=== PATIENT | female | born 1960 | race Caucasian/White ===

== ENCOUNTER 2016-10-12 16:33 | Inpatient (IN) | payer BC, OTHER ==
[~2016-10-12] VITALS: Ht 154.9 cm; Wt 100.7 kg
[2016-10-12] VITALS (50 sets, daily range): BP systolic 147–154; BP diastolic 75–86; PULSE 110–130; TEMP 96.5–98.4; O2SAT 85–96
[2016-10-12 17:14] LABS: ALLEN TEST YES; ALLENS TEST RESULT PASS; ARTERIAL BLD GAS O2 SATURATION 93.2 % (92-100); ARTERIAL BLOOD GAS BASE EXCESS -0.2 (-2-2); ARTERIAL BLOOD GAS HCO3 23.9 meq/L (22-26); ARTERIAL BLOOD GAS PHT 7.43 C (7.35-7.45); ARTERIAL BLOOD GAS PO2 69.3 mmHg (80-100); ARTERIAL BLOOD GAS PO2T 69.3 (80-100); ARTERIAL BLOOD GAS pH 7.43 (7.35-7.45); ATS? YES; OXYHEMOGLOBIN 92.8 %
[2016-10-12 17:46] LABS: MEAN CELL VOLUME 86 fl (80.0-100.0); MEAN CORPUSCULAR HGB CONC 33 g/dl (33.0-37.0); MEAN PLATELET VOLUME 10.7 fl (7.4-10.4); PLATELET COUNT 289 K/mm3 (130-400); RED BLOOD COUNT 3.64 M/mm3 (4.10-5.30); REDCELL DISTRIBUTION WIDTH-CV 14.6 % (11.5-14.5)
[2016-10-12 17:47] LABS: INR 1.1 (0.8-3.0); PROTHROMBIN TIME 12.5 SECONDS (9.7-12.8)
[2016-10-12 17:49] LABS: HEMATOCRIT 31.2 % (37.0-47.0); HEMOGLOBIN 10.2 g/dl (12.5-16.0); MEAN CORPUSCULAR HEMOGLOBIN 28 pg (27.0-31.0)
[2016-10-12 17:50] LABS: ADD PATHOLOGY DIFF REVIEW NO
[2016-10-12 17:58] LABS: ALBUMIN 3.5 gm/dL (3.5-5.0); BILIRUBIN,TOTAL 0.5 mg/dL (0.0-1.0); CALCIUM 7.6 mg/dL (8.4-10.2); CREATININE, serum 0.63 mg/dL (0.52-1.25); POTASSIUM 3.8 mmol/L (3.4-5.0); TOTAL PROTEIN 6.5 gm/dL (6.4-8.2)
[2016-10-12 18:02] LABS: HEMOGLOBIN A1C 7.9 %
[2016-10-12 18:26] LABS: TROPONIN-I 0.129 ng/mL (0.000-0.034)
[2016-10-12 18:44] LABS: LACTIC ACID 4.4 mmol/L (0.4-2.0)
[2016-10-12 19:51] LABS: ANISOCYTOSIS 1+; BAND 5 % (0-10); EOSINOPHIL 1 % (0-4); MYELOCYTE 3 % (0-0); NEUTROPHILS 62 % (42.0-75.2); PLATELET ESTIMATE NORMAL (NORMAL); TOTAL CELLS COUNTED 100
== END 2016-10-12 20:55 | disposition short-term general hospital (02) | DRG 189 ==
LOC: ICU 16:33
PROVIDERS: Internal Medicine; Internal Medicine Pulmonary Disease
DX: J96.01 Acute respiratory failure with hypoxia (principal); I50.21 Acute systolic (congestive) heart failure; I21.4 Non-ST elevation (NSTEMI) myocardial infarction; I10 Essential (primary) hypertension; F17.210 Nicotine dependence, cigarettes, uncomplicated; J45.909 Unspecified asthma, uncomplicated; E11.9 Type 2 diabetes mellitus without complications; Z79.84 Long term (current) use of oral hypoglycemic drugs
CPT/HCPCS: 99223-AI; A4315; J0692; J1650; J1940; J1956; J2930

== ENCOUNTER → 2016-11-03 | Outpatient (REF) | LOC: ZLAB.WCH 10:48 | DX: Z01.89 Encounter for other specified special examinations (principal) ==

== ENCOUNTER → 2016-11-10 | Outpatient (REF) | LOC: ZLAB.WCH 15:20 | DX: Z01.89 Encounter for other specified special examinations (principal) ==

== ENCOUNTER → 2017-01-22 | Outpatient (REF) | LOC: ZLAB.WCH 19:29 | DX: Z01.89 Encounter for other specified special examinations (principal) ==

== ENCOUNTER → 2017-05-01 | Outpatient (REF) | LOC: ZLAB.WCH 18:00 | DX: Z01.89 Encounter for other specified special examinations (principal) ==

== ENCOUNTER → 2017-06-05 | Outpatient (CLI) | payer OTHER | LOC: BHSO 10:56 | DX: F33.42 Major depressive disorder, recurrent, in full remission (principal) | CPT/HCPCS: 90791-AI ==

== ENCOUNTER → 2017-07-05 | Outpatient (CLI) | payer OTHER | LOC: BHSO 10:03 | DX: F33.41 Major depressive disorder, recurrent, in partial remission (principal) ==

== ENCOUNTER → 2017-07-17 | Outpatient (REF) | LOC: ZLAB.WCH 19:32 | DX: Z01.89 Encounter for other specified special examinations (principal) ==

== ENCOUNTER → 2017-10-15 | Outpatient (CLI) | payer OTHER | LOC: BHSO 09:34 | DX: F33.41 Major depressive disorder, recurrent, in partial remission (principal) | CPT/HCPCS: G0463 ==

== ENCOUNTER → 2017-11-07 | Outpatient (REF) | LOC: ZLAB.WCH 18:11 | DX: Z01.89 Encounter for other specified special examinations (principal) ==

== ENCOUNTER → 2017-12-12 | Outpatient (CLI) | payer OTHER | LOC: BHSO 10:38 | DX: F33.41 Major depressive disorder, recurrent, in partial remission (principal) | CPT/HCPCS: G0463 ==

== ENCOUNTER → 2018-03-06 | Outpatient (CLI) | payer OTHER | LOC: BHSO 09:51 | DX: F33.41 Major depressive disorder, recurrent, in partial remission (principal) | CPT/HCPCS: G0463 ==

== ENCOUNTER → 2018-04-19 | Outpatient (REF) | LOC: ZLAB.WCH 16:01 | DX: Z01.89 Encounter for other specified special examinations (principal) ==

== ENCOUNTER → 2018-05-30 | Outpatient (CLI) | payer OTHER | LOC: BHSO 10:14 | DX: F33.41 Major depressive disorder, recurrent, in partial remission (principal) | CPT/HCPCS: G0463 ==

== ENCOUNTER → 2018-07-18 | Outpatient (CLI) | payer OTHER | LOC: COL.VAS 11:15 | DX: I27.20 Pulmonary hypertension, unspecified (principal); I51.7 Cardiomegaly ==

== ENCOUNTER → 2018-10-15 | Outpatient (CLI) | payer OTHER | LOC: BHSO 09:53 | DX: F33.42 Major depressive disorder, recurrent, in full remission (principal) | CPT/HCPCS: G0463 ==

== ENCOUNTER → 2018-12-19 | Outpatient (CLI) | payer OTHER | LOC: BHSO 16:04 | DX: F33.41 Major depressive disorder, recurrent, in partial remission (principal) | CPT/HCPCS: G0463 ==

== ENCOUNTER → 2019-01-02 | Outpatient (REF) | LOC: ZLAB.WCH 13:50 | DX: Z01.89 Encounter for other specified special examinations (principal) ==

== ENCOUNTER → 2019-01-02 | Outpatient (REF) | LOC: ZLAB.WCH 17:17 | DX: Z01.89 Encounter for other specified special examinations (principal) ==

== ENCOUNTER → 2019-01-05 | Outpatient (REF) | LOC: ZLAB.WCH 15:19 | DX: Z01.89 Encounter for other specified special examinations (principal) ==

== ENCOUNTER → 2019-02-19 | Outpatient (CLI) | payer OTHER | LOC: BHSO 13:55 | DX: F33.41 Major depressive disorder, recurrent, in partial remission (principal) | CPT/HCPCS: G0463 ==

== ENCOUNTER → 2019-03-05 | Outpatient (CLI) | payer OTHER | LOC: COL.VAS 02-28 12:30 | DX: R06.02 Shortness of breath (principal) ==

== ENCOUNTER → 2019-05-22 | Outpatient (CLI) | payer OTHER | LOC: BHSO 14:09 | DX: F33.1 Major depressive disorder, recurrent, moderate (principal) | CPT/HCPCS: G0463 ==

== ENCOUNTER → 2021-09-22 | Outpatient (CLI) | payer OTHER | LOC: COL.RAD 08:15 | DX: M51.34 Other intervertebral disc degeneration, thoracic region (principal); M48.04 Spinal stenosis, thoracic region; M51.25 Other intervertebral disc displacement, thoracolumbar region | CPT/HCPCS: A9585 ==

== ENCOUNTER 2022-03-27 19:52 | Observation (INO) | payer OTHER ==
[~2022-03-27] VITALS: Ht 152.4 cm; Wt 82.9 kg
[2022-03-27 21:32] VITALS: BP 96/46; PULSE 72; TEMP 98.6
[2022-03-27] MEDS ORDERED: GLUCOPHAGE XR500 M1 PO (21:49)
[2022-03-27] MEDS ORDERED: LYRICA300 MG PO (21:50)
[2022-03-27] MEDS ORDERED: COZAAR 25MG25 MG/TAB PO (21:50)
[2022-03-27] MEDS ORDERED: DOXYCYCLINE HY100 MG PO (21:51)
[2022-03-27] MEDS ORDERED: PRIL40 PO (21:51)
[2022-03-27] MEDS ORDERED: CEPHALEXIN500 M1 PO (21:52)
[2022-03-27] MEDS ORDERED: PRISTIQ25 MG PO (21:52)
[2022-03-27] MEDS ORDERED: CALCIUM 600-D 61 TAB PO (21:53)
[2022-03-27] MEDS ORDERED: MOBIC15 MG PO (21:54)
[2022-03-27] MEDS ORDERED: ARICEPT10 MG PO (21:54)
[2022-03-27] MEDS ORDERED: LOFIBRA134 MG PO (21:54)
[2022-03-27] MEDS ORDERED: LASIX 20MG TABL20 MG PO (21:55)
[2022-03-27] MEDS ORDERED: SYNTHROID0.05 MG/TA PO (21:55)
[2022-03-27] MEDS ORDERED: TOPROL XL100 MG PO (21:56)
[2022-03-27] MEDS ORDERED: ZOCOR 40MG40 MG PO (21:56)
[2022-03-27] MEDS ORDERED: TRULICITY1.5 MG/0.5 SQ (21:57)
[2022-03-27] MEDS ORDERED: IPRATROPIUM BROM3 M1 IH (21:57)
[2022-03-27] MEDS ORDERED: REQUIP XL12 MG PO (21:58)
[2022-03-27] MEDS ORDERED: ALDACTONE 25MG25 M1 PO (21:58)
--- NOTE | 2022-03-27 22:54 | NUR ---
Patient arrived to medical unit from [place] via EMS at approximately 2145. Denies having pain and discomfort. On oxygen at 1.5 L/min via NC. Brought home BIPAP. Notified RT. Med rec completed, and updated BRITNEY Saunders. Patient reports SOB has gotten better with oxygen. Denies pain and discomfort. In bed with call light within reach. Voices no questions, needs, or concerns at this time.
[2022-03-28] VITALS (7 sets, daily range): BP systolic 90–131; BP diastolic 46–68; PULSE 6–70; TEMP 97.5–98.6
--- NOTE | 2022-03-28 05:57 | NUR ---
Patient had been on oxygen at 1.5 L/min via NC. During sleep, was on home CPAP with oxygen at 3 L/min bleed in per RT. Denies pain and discomfort. Voices no questions, needs, or concerns at this time. In bed with call light within reach.
[2022-03-28 07:11] LABS: BASO % 0.3 % (0.0-2.0); GRAN # 2.2 K/mm3 (1.4-6.5); GRAN % 72.6 % (42.2-75.2); HEMOGLOBIN 10.4 g/dl (12.5-16.0); LYMPH # 0.6 K/mm3 (1.2-3.4); LYMPH % 18.8 % (20.0-51.0); MEAN CELL VOLUME 88 fl (80.0-100.0); MEAN CORPUSCULAR HEMOGLOBIN 29 pg (27-31); MEAN CORPUSCULAR HGB CONC 33 g/dl (33.0-37.0); MEAN PLATELET VOLUME 11.6 fl (7.4-10.4); MONO # 0.2 K/mm3 (0.1-0.6); MONO % 7.6 % (1.7-9.3); PLATELET COUNT 165 K/mm3 (130-400); RED BLOOD COUNT 3.57 M/mm3 (4.10-5.30); REDCELL DISTRIBUTION WIDTH-CV 13.1 % (11.5-14.5)
[2022-03-28 07:16] LABS: HEMATOCRIT 31.5 % (37.0-47.0)
[2022-03-28 07:25] LABS: CALCIUM 8.6 mg/dL (8.4-10.2); CREATININE, serum 1.19 mg/dL (0.57-1.11); MAGNESIUM 1.5 mg/dL (1.6-2.6); POTASSIUM 4.2 mmol/L (3.5-4.5)
--- NOTE | 2022-03-28 10:00 | NUR ---
The patient is COVID positive. SW contacted the patient to discuss discharge plan. The patient lives in [place] with her , Kem ([phone]). She reports independence with ADLs and has a cane, when needed. The patient's primary care provider is Celia Sanches at [facility] in [place] and she receives her medications from [facility]. She reports no difficulties obtaining her meds. The patient states that she believes she has a really old DPOA-HC completed and she was interested in obtaining a new form. SW placed the form on the patient's chart. The patient plans to return home with her upon discharge. She is currently not requiring any oxygen. *Discharge plan: home with *
--- NOTE | 2022-03-28 23:11 | NUR ---
PT ASSESSED AT BEGINNING OF SHIFT. DENIED PAIN, WEARS 2L OF O2 DURING THE DAY, CPAP WITH 3L OF O2 AT NOC.
[2022-03-29 07:45] VITALS: BP 116/73; PULSE 58; TEMP 98.3
--- NOTE | 2022-03-29 08:00 | NUR ---
AID REPORTED 64 BLOOD SUGAR READING TO THIS RN. PATIENT GIVEN JUICE AND GLUCOSE TABLETS. PATIENT REPORTS SHE FEELS TIRED WITH A HEADACHE AT THIS TIME. WILL RECHECK READING AFTER BREAKFAST
[2022-03-29 10:57] LABS: CALCIUM 8.8 mg/dL (8.4-10.2); CREATININE, serum 0.88 mg/dL (0.57-1.11); MAGNESIUM 2.1 mg/dL (1.6-2.6); POTASSIUM 4.1 mmol/L (3.5-4.5)
[2022-03-29 12:08] VITALS: BP 118/65; PULSE 62; TEMP 97.9
--- NOTE | 2022-03-29 15:44 | NUR ---
PATIENT DOING WELL THIS SHIFT. NO COMPLAINTS. PLAN TO DISCHARGE HOME TOMORROW. ABLE TO AMBULATE ON OWN. CONTINENT OF B/B. TAKES MEDS WHOLE. VITALS WNL. A&O X4.
[2022-03-29 15:46] VITALS: BP 121/58; PULSE 65; TEMP 98.5
[2022-03-29 19:40] VITALS: BP 128/60; PULSE 65; TEMP 98.4
[2022-03-29 23:39] VITALS: BP 127/63; PULSE 56; TEMP 98.5
[2022-03-30 03:58] VITALS: BP 111/66; PULSE 60; TEMP 97.3
[2022-03-30 07:00] VITALS: BP 132/67; PULSE 59; TEMP 98.2
[2022-03-30] MEDS ORDERED: RT Albuterol HFA MDI IH (09:21)
[2022-03-30] MEDS ORDERED: DECADRON6 MG PO (09:24)
--- NOTE | 2022-03-30 10:03 | NUR ---
An exercise oximetry was ordered. The patient did not qualify for oxygen. The patient is to discharge back home with her today. No additional needs at this time.
== END 2022-03-30 10:30 | disposition home or self-care (01) ==
LOC: MEDICAL 19:52
PROVIDERS: Internal Medicine; Student in an Organized Health Care Education/Training Program; ADMIT Family Medicine
DX: U07.1 COVID-19 (principal); J96.01 Acute respiratory failure with hypoxia; N17.9 Acute kidney failure, unspecified; I11.0 Hypertensive heart disease with heart failure; I50.30 Unspecified diastolic (congestive) heart failure; E78.5 Hyperlipidemia, unspecified; G47.33 Obstructive sleep apnea (adult) (pediatric); J45.909 Unspecified asthma, uncomplicated; E11.42 Type 2 diabetes mellitus with diabetic polyneuropathy; F32.A Depression, unspecified; E03.9 Hypothyroidism, unspecified; G20 Parkinson's disease
CPT/HCPCS: G0378; J0248; J0696; J1100; J1644; J1815; J3475; J7030; J7050

== ENCOUNTER → 2023-09-24 | Outpatient (CLI) | payer OTHER ==
[~2023-09-24] MED LIST: ALDACTONE 25MG25 M1 PO; ARICEPT10 MG PO; CALCIUM 600-D 61 TAB PO; CEPHALEXIN500 M1 PO; COZAAR 25MG25 MG/TAB PO; DECADRON6 MG PO; DOXYCYCLINE HY100 MG PO; GLUCOPHAGE XR500 M1 PO; IPRATROPIUM BROM3 M1 IH; LASIX 20MG TABL20 MG PO; LOFIBRA134 MG PO; LYRICA300 MG PO; MOBIC15 MG PO; PRIL40 PO; PRISTIQ25 MG PO; REQUIP XL12 MG PO; RT Albuterol HFA MDI IH; SYNTHROID0.05 MG/TA PO; TOPROL XL100 MG PO; TRULICITY1.5 MG/0.5 SQ; ZOCOR 40MG40 MG PO
== END ==
LOC: COL.RAD 12:06
DX: K76.0 Fatty (change of) liver, not elsewhere classified (principal); R16.0 Hepatomegaly, not elsewhere classified